=== PATIENT | male | born 1995 | race Hispanic/Latino ===

== ENCOUNTER 2022-03-05 13:39 | Emergency (ER) | payer SELFPAY | END 2022-03-05 14:10 | disposition home or self-care (01) | LOC: NAV ERS 13:39 | DX: S06.5X0A Traumatic subdural hemorrhage without loss of consciousness, initial encounter (principal); S92.251A Displaced fracture of navicular [scaphoid] of right foot, initial encounter for closed fracture; S20.211A Contusion of right front wall of thorax, initial encounter; R11.0 Nausea; F17.210 Nicotine dependence, cigarettes, uncomplicated; X58.XXXA Exposure to other specified factors, initial encounter | CPT/HCPCS: 99283 ==